=== PATIENT | female | born 1970 | race Hispanic/Latino ===

== ENCOUNTER 2016-08-31 11:32 | Emergency (ER) | payer MEDICAID, OTHER ==
[2016-08-31] MEDS ORDERED: Ketorolac 60 MG/2 ML SDV IM ONE (12:01)
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
--- NOTE | 2016-08-31 12:43 | CT ---
EXAMINATION: Non contrast CT head. Coronal and sagittal reformats. HISTORY: Pain FINDINGS: No evidence of intra or extra axial hemorrhage, mass, midline shift, hydrocephalus or edema. No hypoattenuation changes in the major vascular territories to suggest acute infarct. No abnormal intracranial calcifications are detected. No evidence of substantial vascular calcifica tions. Paranasal sinuses and mastoid air cells are well aerated without substantial findings. The orbits a nd globes are symmetric. Pituitary fossa appears unremarkable. Calvarium is intact. No evidence of skull fracture. IMPRESSION: No acute intracranial findings.
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
--- NOTE | 2016-08-31 13:05 | CR ---
EXAMINATION: Two-view chest (PA and Lateral views). HISTORY: Shortness of breath. FINDINGS: The trachea is midline. The cardiomediastinal silhouette is within normal limits. No pulmonary infil trates, effusions or pneumothorax. Osseous structures appear unremarkable. IMPRESSION: No acute cardiopulmonary process.
--- NOTE | 2016-08-31 13:05 | CR ---
EXAMINATION: Left knee HISTORY: Pain COMPARISON: None TECHNIQUE: 3 views FINDINGS/IMPRESSION: There is no acute osseous abnormality, dislocation, or fracture identified. Bon e mineralization and joint spaces appear normal. No soft tissue swelling or joint effusion.
[2016-08-31 13:34] VITALS: BP 112/69
== END 2016-08-31 13:27 | disposition home or self-care (01) ==
LOC: MW.ED 11:32
DX: S80.02XA Contusion of left knee, initial encounter (principal); S80.01XA Contusion of right knee, initial encounter; T14.8 Other injury of unspecified body region; Z88.5 Allergy status to narcotic agent; Z90.710 Acquired absence of both cervix and uterus; V89.2XXA Person injured in unspecified motor-vehicle accident, traffic, initial encounter
CPT/HCPCS: 70450; 71020; 72125; 73562; 96372; 99284; J1885

== ENCOUNTER 2017-01-13 10:38 | Emergency (ER) | payer SELFPAY ==
[2017-01-13] MEDS ORDERED: Sodium Chloride 0.9% 2.5 ML Syringe FLUSH PRN (11:10)
[2017-01-13] MEDS ORDERED: Ketorolac 30 MG/ML SDV IVPUSH ONE (11:10)
[2017-01-13] MEDS ORDERED: diphenhydrAMINE 50 MG/ML SDV IVPUSH ONE (11:10)
[2017-01-13] MEDS ORDERED: Sodium Chloride 0.9% 1,000 ML IV ONE (11:10)
[2017-01-13] MEDS ORDERED: Sodium Chloride 0.9% 10 ML Syringe FLUSH PRN (11:10)
[2017-01-13] MEDS ORDERED: Ondansetron 4 MG/2 ML SDV IVPUSH ONE (11:10)
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
--- NOTE | 2017-01-13 12:01 | CT ---
EXAMINATION: Non contrast CT head. Coronal and sagittal reformats. HISTORY: Pain FINDINGS: No evidence of intra or extra axial hemorrhage, mass, midline shift, hydrocephalus or edema. No hypoattenuation changes in the major vascular territories to suggest acute infarct. No abnormal intracranial calcifications are detected. No evidence of substantial vascular calcificat ions. Paranasal sinuses and mastoid air cells are well aerated without substantial findings. Orbits and gl obes are symmetric. Pituitary fossa appears unremarkable. Calvarium is intact. No evidence of skull fracture. IMPRESSION: No acute intracranial findings.
[2017-01-13 12:24] LABS: CHLORIDE,CL 107 mmol/L (98-110); SODIUM,NA 140 mmol/L (136-146)
[2017-01-13 13:14] VITALS: BP 115/79
== END 2017-01-13 13:05 | disposition home or self-care (01) ==
LOC: MW.ED 10:38
DX: H81.10 Benign paroxysmal vertigo, unspecified ear (principal); R51 Headache; G89.29 Other chronic pain; M54.2 Cervicalgia; Z90.710 Acquired absence of both cervix and uterus; Z88.5 Allergy status to narcotic agent; Z88.6 Allergy status to analgesic agent
CPT/HCPCS: 70450; 80053; 85025; 93005; 96361; 96374; 96375; 99284; J1200; J1885; J2405; J7040; 99283

== ENCOUNTER 2017-03-15 10:48 | Emergency (ER) | payer OTHER ==
[2017-03-15 11:19] VITALS: BP 146/90
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
== END 2017-03-15 11:27 | disposition left against medical advice (07) ==
LOC: MW.ED 10:48
DX: G89.21 Chronic pain due to trauma (principal); R51 Headache; Z88.5 Allergy status to narcotic agent
CPT/HCPCS: 99283